=== PATIENT | male | born 1945 | race Caucasian/White ===

== ENCOUNTER 2016-09-27 10:15 | Day surgery (SDC) | payer MEDICARE ==
[2016-09-25 14:48] VITALS: BMI 25.2
[~2016-09-27 10:15] MED LIST: HYDROmorphone 1 MG/ML 1 ML SYRINGE IVP PRN; LACTATED RINGERS 1,000 ML IV SCH; LIDOCAINE 1% 20 ML VIAL (10MG/ML) FOR IV START INTRADERMA PRN; ceFAZolin 2 GM in SODIUM CHLORIDE 0.9% 100 ML IVPB ONE
[2016-09-27 10:45] VITALS: TEMP 97.2
--- NOTE | 2016-09-27 12:05 | P.GSHP ---
History of Present Illness H&P Date: 09/27/16 Chief Complaint: Mesothelioma Patient here today for elective Port-A-Cath placement. The patient has a personal history of mesothelioma. Recently he was found to have poor response to his chronic therapy and the new therapy is requiring central access. He has not had a previous port. Past Medical History Past Medical History: Cancer, Hypertension Additional Past Medical History / Comment(s): Mesothelioma History of Any Multi-Drug Resistant Organisms: None Reported Past Surgical History: Orthopedic Surgery Additional Past Surgical History / Comment(s): RT fractured collar bone PLATE AND SCEWS, lt ankle-surgery required plate and screws; "fluid drained from R lung" Past Anesthesia/Blood Transfusion Reactions: No Reported Reaction Past Psychological History: No Psychological Hx Reported Smoking Status: Former smoker Past Alcohol Use History: Rare Additional Past Alcohol Use History / Comment(s): smoked for 22 years 1/2 pkg a day; quit 1979 Past Drug Use History: None Reported - Past Family History Brother(s) Family Medical History: Cancer Additional Family Medical History / Comment(s): "throat cancer" Medications and Allergies Home Medications Medication Instructions Recorded Confirmed Type Lisinopril [Zestril] 10 mg PO QAM 08/17/14 09/27/16 History amLODIPine BESYLATE [Norvasc] 5 mg PO QAM 08/17/14 09/27/16 History Folic Acid 1 mg PO DAILY 09/25/16 09/27/16 History Allergies Allergy/AdvReac Type Severity Reaction Status Date / Time No Known Allergies Allergy Verified 09/25/16 14:37 Surgical - Exam Vital Signs Temp Pulse Resp BP Pulse Ox 97.2 F L 66 16 153/72 97 09/27/16 10:44 09/27/16 10:44 09/27/16 10:44 09/27/16 10:44 09/27/16 10:44 Physical exam: General: Well-developed, well-nourished HEENT: Normocephalic, sclerae nonicteric Abdomen: Nontender, nondistended Extremities: No edema Neuro: Alert and oriented Assessment and Plan (1) Mesothelioma Narrative/Plan: Will proceed with Port-A-Cath placement today. Risks of bleeding, infection, pneumothorax, catheter malfunction, catheter breakage, DVT were discussed. He understands and wishes to proceed. Status: Acute
[2016-09-27] MEDS ORDERED: PROPOFOL 10 MG/ML 20 ML VIAL IV ONE (12:29)
[2016-09-27] MEDS ORDERED: fentaNYL (PF) 50 MCG/ML 2 ML AMP ONE (12:29)
[2016-09-27] MEDS ORDERED: MIDAZOLAM 2 MG/2 ML VIAL ONE (12:29)
[2016-09-27] MEDS ORDERED: KETAMINE 10 MG/ML 20 ML VIAL ONE (12:29)
[2016-09-27] MEDS ORDERED: HEPARIN SODIUM,PORCINE 100 UNIT/ML 5 ML VIAL IV ONE ×2 (12:51)
[2016-09-27] MEDS ORDERED: LIDOCAINE (PF) 10 MG/ML 2 ML VIAL SQ ONE ×2 (12:52)
[2016-09-27] MEDS ORDERED: LACTATED RINGERS 1,000 ML IV ONE (12:55)
[2016-09-27] MEDS ORDERED: HYDROcodone/APAP 5-325MG 1 EACH TAB PO PRN (13:19)
[2016-09-27] MEDS ORDERED: NALOXONE 0.4 MG/ML 1 ML VIAL IV PRN (13:19)
--- NOTE | 2016-09-27 13:21 | P.OP ---
Date of Procedure: 09/27/16 Preoperative Diagnosis: Postoperative Diagnosis: Procedure(s) Performed: PREOPERATIVE DIAGNOSIS: Mesothelioma POSTOPERATIVE DIAGNOSIS: Same PROCEDURE: Port-A-Cath placement SURGEON: Skinny EBL: Minimal ANESTHESIA: Sedation COMPLICATIONS: None OPERATIVE PROCEDURE: Patient was brought and placed on the operative table in the supine position. The patient was sedated per anesthesia that time. The chest and neck were prepped and draped in usual sterile fashion. The ultrasound probe was used to identify the location of the right internal jugular vein. The skin was localized with lidocaine. The Seldinger needle was advanced into the IJ under ultrasound guidance. The wire was advanced through the needle under fluoroscopic guidance into the superior vena cava. A port pocket was created in the right infraclavicular location. The catheter was tunneled from the wire entrance site to the port pocket. The port was then connected to the catheter. The dilator introducer was threaded over the guidewire. The guidewire and dilator were then removed. The catheter was advanced through the introducer and introducer was then removed. The tip was seen to be in the right atrial junction. Port was flushed with both saline and a Hep-Lock solution. There was good flow both in and out of the port. The port was sutured in underlying tissues using 3-0 silk sutures. The subcutaneous tissues were reapproximated using 3-0 Vicryl sutures and the skin at both locations using 4-0 Monocryl sutures. Steri-Strips and sterile dressings then applied. DISPOSITION: Stable to recovery room Implants: Indications for Procedure: Operative Findings: Description of Procedure:
--- NOTE | 2016-09-27 13:22 | FL ---
FLUOROSCOPY 7 seconds of fluoroscopy time were utilized during Port-A-Cath placement. 1 images document the proce dure.
[2016-09-27 13:42] VITALS: RESP 16
--- NOTE | 2016-09-27 13:54 | XR ---
EXAMINATION TYPE: XR chest 1V portable DATE OF EXAM: 09/27/2016 HISTORY: LINE PLACEMENT. REFERENCE: Previous study dated 08/26/2014. FINDINGS: There has been previous internal fixation of the right clavicle. There is a MediPort in place via a right internal jugular approach. Its tip is in the superior vena c michele. There is a loculated pleural effusion on the right. There is some associated airspace disease. The le ft lung is clear. Heart size is upper limits of normal. No postprocedure pneumothorax is seen. IMPRESSION: LOCULATED RIGHT-SIDED PLEURAL EFFUSION WITH ASSOCIATED AIRSPACE DISEASE.
[2016-09-27 14:34] VITALS: BP 153/68; PULSE 81
== END 2016-09-27 14:42 | disposition home or self-care (01) ==
LOC: OR 10:15
PROVIDERS: ATTEND Surgery
DX: C45.9 Mesothelioma, unspecified (principal); I10 Essential (primary) hypertension; Z79.899 Other long term (current) drug therapy; Z87.891 Personal history of nicotine dependence; Z80.8 Family history of malignant neoplasm of other organs or systems
CPT/HCPCS: 36561; 71010; 77001; C1788; J2250; J2001; J1642; J0690; J3010; J2704

== ENCOUNTER → 2016-10-03 | Outpatient (CLI) | payer MEDICARE ==
--- NOTE | 2016-10-03 19:47 | XR ---
EXAMINATION TYPE: XR chest 2V DATE OF EXAM: 10/03/2016 COMPARISON: 09/27/2016 HISTORY: Short of breath TECHNIQUE: Frontal and lateral views of the chest are obtained. FINDINGS: There is blunting of right costophrenic angle. There is slight blunting of left costophren ic angle. There is a plate fixing an old right clavicle fracture. There is right central venous jose luis ter with tip in the superior vena cava. IMPRESSION: There is moderate size right pleural effusion with right lower lobe infiltrate that is u nchanged compared to last exam. No heart failure. There is new small left pleural effusion.
== END | disposition home or self-care (01) ==
LOC: RADXRMAIN 19:17
PROVIDERS: ATTEND Internal Medicine Hematology & Oncology
DX: J90 Pleural effusion, not elsewhere classified (principal); R91.8 Other nonspecific abnormal finding of lung field
CPT/HCPCS: 71020

== ENCOUNTER 2016-10-09 07:54 | Day surgery (SDC) | payer MEDICARE ==
[2016-10-09] MEDS ORDERED: ALPRAZolam 0.25 MG TAB PO STA (08:43)
[2016-10-09 08:50] VITALS: TEMP 98.1
[2016-10-09 08:53] LABS: Mean Platelet Volume 6.6
[2016-10-09 08:58] LABS: INR 1.1 (<1.1); Prothrombin Time 11.4 sec (9.0-12.0)
[2016-10-09 09:43] VITALS: BP 133/66; PULSE 86; RESP 15
--- NOTE | 2016-10-09 10:33 | XR ---
EXAMINATION TYPE: XR chest 1V DATE OF EXAM: 10/09/2016 COMPARISON: Prior chest x-ray 10/03/2016 HISTORY: Status post right-sided thoracentesis TECHNIQUE: Single frontal view of the chest is obtained. FINDINGS: There is some interval improvement in the aeration of the right lung. Interval reduction i n pleural fluid. No evident pneumothorax. No other significant interval change. IMPRESSION: No evident complication status post right thoracentesis.
--- NOTE | 2016-10-09 10:59 | US ---
EXAMINATION TYPE: US thoracentesis DATE OF EXAM: 10/09/2016 COMPARISON: NONE HISTORY: Pleural effusion. FINDINGS: Maximal barrier technique was utilized. The skin overlying a suitable pocket of fluid was localized and the overlying skin prepped and draped. Lidocaine was used for local anesthesia. Ultras ound was used with sterile technique. A 5 Spanish catheter over guide needle was advanced into the pl eural fluid collection using ultrasound guidance and the catheter advanced, needle removed. Approxim ately 0.75liter(s) of serous fluid was removed. Catheter was withdrawn and hemostasis achieved. The re is no immediate complication. The patient discharged in stable condition without complication. IMPRESSION: STATUS POST ULTRASOUND GUIDED THORACENTESIS, POST PROCEDURE CHEST X-RAY PENDING. THIS IL OCEDURE WAS PERFORMED BY THE UNDERSIGNED.
== END 2016-10-09 10:40 | disposition home or self-care (01) ==
LOC: RADPROMAIN 07:54
PROVIDERS: ATTEND Internal Medicine Hematology & Oncology
DX: F91.8 Other conduct disorders (principal); C45.0 Mesothelioma of pleura
CPT/HCPCS: 85049; 85610; 71010; 32555; J1642

== ENCOUNTER → 2016-11-21 | Outpatient (CLI) | payer MEDICARE ==
--- NOTE | 2016-11-21 15:31 | XR ---
EXAMINATION TYPE: XR chest 2V DATE OF EXAM: 11/21/2016 COMPARISON: Prior chest x-ray 10/09/2016 HISTORY: Mesothelioma, C 45.0 TECHNIQUE: Frontal and lateral views of the chest are obtained. FINDINGS: Right-sided Port-A-Cath is present, distal tip overlying superior vena cava. Pleural paren chymal changes are similar to prior exam within the right hemithorax. Interstitium is prominent in th e right hemithorax, right hilum also somewhat prominent as compared to left. No evident pneumothorax. Possible small pleural effusion. Heart size is stable. IMPRESSION: Findings compatible with patient's history of mesothelioma. There is likely associated e ffusion.
== END | disposition home or self-care (01) ==
LOC: RADXRMAIN 13:45
PROVIDERS: ATTEND Internal Medicine Hematology & Oncology
DX: C45.0 Mesothelioma of pleura (principal); C43.9 Malignant melanoma of skin, unspecified; E78.2 Mixed hyperlipidemia; I10 Essential (primary) hypertension
CPT/HCPCS: 71020

== ENCOUNTER → 2016-12-19 | Outpatient (CLI) | payer MEDICARE ==
--- NOTE | 2016-12-19 09:49 | XR ---
EXAMINATION TYPE: XR chest 2V DATE OF EXAM: 12/19/2016 COMPARISON: 11/21/2016 TECHNIQUE: PA and lateral views submitted. HISTORY: Mesothelioma FINDINGS: Bilateral consolidation and pleural effusion greater on the right is stable. Mediport catheter noted. Diffuse osteopenia and arthropathy of the shoulders. Underlying COPD noted. Curvature the spine with hypertrophic changes. Postsurgical change right clavicle. IMPRESSION: 1. Stable bilateral consolidation and pleural effusion greater on the right. Findings compatible with the patient's history of mesothelioma.
== END ==
LOC: RADXRMAIN 09:24
PROVIDERS: ATTEND Internal Medicine Hematology & Oncology
DX: C43.9 Malignant melanoma of skin, unspecified (principal); C45.0 Mesothelioma of pleura; J91.0 Malignant pleural effusion
CPT/HCPCS: 71020

== ENCOUNTER 2016-12-24 08:58 | Inpatient (IN) | payer MEDICARE ==
--- NOTE | 2016-12-24 09:42 | ED ---
General Adult HPI - General Chief complaint: Recheck/Abnormal Lab/Rx Stated complaint: MACHO, VISUAL DISTURBANCE Time Seen by Provider: 12/24/16 09:00 Source: patient, RN notes reviewed Mode of arrival: ambulatory Limitations: no limitations - History of Present Illness Initial comments: This is a 71-year-old male who presents emergency department complaining about 4 week history of difficulty breathing. Patient states the difficulty breathing is gotten progressively worse per patient states he has a past medical history significant for mesothelioma. Patient states though the breathing has gotten more difficult the reason he came in today was because while he was walking into [facility] he became short of breath also started to have a disturbed vision he stated his vision was all broken up but not blurred patient states it lasts about 15 minutes and it went away. Patient denies any sensation of near syncope or syncope. Patient denies any dizziness or lightheadedness. Patient denies any chest pain or palpitations. Patient denies any recent fever chills or cough. Patient denies abdominal pain patient denies nausea vomiting or diarrhea. Patient denies any calf pain however he does mention he has edema in the last week of his legs. - Related Data Home Medications Medication Instructions Recorded Confirmed Lisinopril [Zestril] 10 mg PO QAM 08/17/14 12/24/16 amLODIPine BESYLATE [Norvasc] 5 mg PO QAM 08/17/14 12/24/16 Acetaminophen [Tylenol Extra 1,000 mg PO Q6H PRN 10/09/16 12/24/16 Strength] Omeprazole 20 mg PO DAILY 12/24/16 12/24/16 Allergies Allergy/AdvReac Type Severity Reaction Status Date / Time No Known Allergies Allergy Verified 12/24/16 09:42 Review of Systems ROS Statement: Those systems with pertinent positive or pertinent negative responses have been documented in the HPI. ROS Other: All systems not noted in ROS Statement are negative. Past Medical History Past Medical History: Cancer, Hypertension Additional Past Medical History / Comment(s): Mesothelioma, chemo therapy History of Any Multi-Drug Resistant Organisms: None Reported Past Surgical History: Orthopedic Surgery Additional Past Surgical History / Comment(s): RT fractured collar bone PLATE AND SCEWS, lt ankle-surgery required plate and screws; "fluid drained from R lung", VATS pleural talc right lung, infusaport inserted Past Anesthesia/Blood Transfusion Reactions: No Reported Reaction Past Psychological History: No Psychological Hx Reported Smoking Status: Former smoker Past Alcohol Use History: Rare Past Drug Use History: None Reported - Past Family History Brother(s) Family Medical History: Cancer Additional Family Medical History / Comment(s): "throat cancer" General Exam - General Exam Comments Initial Comments: GENERAL: Patient is well-developed and well-nourished. Patient is nontoxic and well- hydrated and is in mild distress. ENT: Neck is soft and supple. No significant lymphadenopathy is noted. Oropharynx is clear. Moist mucous membranes. Neck has full range of motion without eliciting any pain. EYES: The sclera were anicteric and conjunctiva were pink and moist. Extraocular movements were intact and pupils were equal round and reactive to light. Eyelids were unremarkable. PULMONARY: Patient is crackles right base. CARDIOVASCULAR: There is a regular rate and rhythm without any murmurs gallops or rubs. ABDOMEN: Soft and nontender with normal bowel sounds. No palpable organomegaly was noted. There is no palpable pulsatile mass. SKIN: Skin is clear with no lesions or rashes and otherwise unremarkable. NEUROLOGIC: Patient is alert and oriented x3. Cranial nerves II through XII are grossly intact. Motor and sensory are also intact. Normal speech, volume and content. Symmetrical smile. MUSCULOSKELETAL: Normal extremities with adequate strength and full range of motion. LYMPHATICS: No significant lymphadenopathy is noted PSYCHIATRIC: Normal psychiatric evaluation. Limitations: no limitations Course Vital Signs 12/24/16 12/24/16 12/24/16 09:00 10:45 12:21 Temperature 97.2 F L Pulse Rate 86 93 88 Respiratory 20 18 18 Rate Blood Pressure 160/77 158/73 136/67 O2 Sat by Pulse 92 L 93 L 94 L Oximetry Medical Decision Making - Medical Decision Making EKG shows normal sinus rhythm at 86 bpm IN interval 184 QRS is under 10 Q-T intervals 378 QTC is 452. Patient's EKG shows no ST segment elevation or depression or T wave abnormalities are noted. Chest x-ray shows pleural effusions possible Mass. no significant change from us chest x-ray. CT of the chest shows no Katharina embolism and some progression of the cancer from 2016. CT of the brain shows no acute abnormality. - Lab Data Result diagrams: 12/24/16 09:57 12/24/16 09:57 Lab Results 0912/24/16 12/24/16 Range/Units 09:57 09:57 09:57 WBC 4.6 (3.8-10.6) k/uL RBC 3.78 L (4.30-5.90) m/uL Hgb 10.6 L (13.0-17.5) gm/dL Hct 30.8 L (39.0-53.0) % MCV 81.5 (80.0-100.0) fL MCH 28.1 (25.0-35.0) pg MCHC 34.5 (31.0-37.0) g/dL RDW 17.2 H (11.5-15.5) % Plt Count 358 (150-450) k/uL Neutrophils % (Manual) 73 % Lymphocytes % (Manual) 11 % Monocytes % (Manual) 15 % Eosinophils % (Manual) 1 % Neutrophils # (Manual) 3.36 (1.3-7.7) k/uL Lymphocytes # (Manual) 0.51 L (1.0-4.8) k/uL Monocytes # (Manual) 0.69 (0-1.0) k/uL Eosinophils # (Manual) 0.05 (0-0.7) k/uL Nucleated RBCs 0 (0-0) /100 WBC Polychromasia Present Hypochromasia Slight Poikilocytosis Slight Anisocytosis Slight PT (9.0-12.0) sec INR (<1.2) APTT (22.0-30.0) sec D-Dimer (<0.60) mg/L FEU Sodium 135 L (137-145) mmol/L Potassium 3.9 (3.5-5.1) mmol/L Chloride 102 (98-107) mmol/L Carbon Dioxide 23 (22-30) mmol/L Anion Gap 10 mmol/L BUN 15 (9-20) mg/dL Creatinine 0.77 (0.66-1.25) mg/dL Est GFR (MDRD) Af Amer >60 (>60 ml/min/1.73 sqM) Est GFR (MDRD) Non-Af >60 (>60 ml/min/1.73 sqM) Glucose 96 (74-99) mg/dL Calcium 9.0 (8.4-10.2) mg/dL Magnesium 1.7 (1.6-2.3) mg/dL Total Bilirubin 0.3 (0.2-1.3) mg/dL AST 31 (17-59) U/L ALT 32 (21-72) U/L Alkaline Phosphatase 85 (38-126) U/L Total Creatine Kinase 104 (55-170) U/L CK-MB (CK-2) 2.5 H* (0.0-2.4) ng/mL CK-MB (CK-2) Rel Index 2.4 Troponin I <0.012 (0.000-0.034) ng/mL NT-Pro-B Natriuret Pep pg/mL Total Protein 6.7 (6.3-8.2) g/dL Albumin 3.1 L (3.5-5.0) g/dL 12/24/16 12/24/16 Range/Units 09:57 09:57 WBC (3.8-10.6) k/uL RBC (4.30-5.90) m/uL Hgb (13.0-17.5) gm/dL Hct (39.0-53.0) % MCV (80.0-100.0) fL MCH (25.0-35.0) pg MCHC (31.0-37.0) g/dL RDW (11.5-15.5) % Plt Count (150-450) k/uL Neutrophils % (Manual) % Lymphocytes % (Manual) % Monocytes % (Manual) % Eosinophils % (Manual) % Neutrophils # (Manual) (1.3-7.7) k/uL Lymphocytes # (Manual) (1.0-4.8) k/uL Monocytes # (Manual) (0-1.0) k/uL Eosinophils # (Manual) (0-0.7) k/uL Nucleated RBCs (0-0) /100 WBC Polychromasia Hypochromasia Poikilocytosis Anisocytosis PT 10.5 (9.0-12.0) sec INR 1.0 (<1.2) APTT 25.0 (22.0-30.0) sec D-Dimer 3.84 H (<0.60) mg/L FEU Sodium (137-145) mmol/L Potassium (3.5-5.1) mmol/L Chloride (98-107) mmol/L Carbon Dioxide (22-30) mmol/L Anion Gap mmol/L BUN (9-20) mg/dL Creatinine (0.66-1.25) mg/dL Est GFR (MDRD) Af Amer (>60 ml/min/1.73 sqM) Est GFR (MDRD) Non-Af (>60 ml/min/1.73 sqM) Glucose (74-99) mg/dL Calcium (8.4-10.2) mg/dL Magnesium (1.6-2.3) mg/dL Total Bilirubin (0.2-1.3) mg/dL AST (17-59) U/L ALT (21-72) U/L Alkaline Phosphatase (38-126) U/L Total Creatine Kinase (55-170) U/L CK-MB (CK-2) (0.0-2.4) ng/mL CK-MB (CK-2) Rel Index Troponin I (0.000-0.034) ng/mL NT-Pro-B Natriuret Pep 120 pg/mL Total Protein (6.3-8.2) g/dL Albumin (3.5-5.0) g/dL Disposition Clinical Impression: Visual disturbance, Dyspnea, History of malignant mesothelioma Disposition: ADMITTED IP TO THIS HOSP Referrals: Theron Zaragoza MD [Primary Care Provider] - 1-2 days Time of Disposition: 12:34
--- NOTE | 2016-12-24 10:13 | CT ---
EXAMINATION TYPE: CT brain wo con DATE OF EXAM: 12/24/2016 HISTORY: Blurred vision CT DLP: 1036 mGycm. Automated Exposure Control for Dose Reduction was Utilized. TECHNIQUE: CT scan of the head is performed without contrast. COMPARISON: None. FINDINGS: There is no acute intracranial hemorrhage or midline shift identified. There is diffuse v entricular and sulcal prominence consistent with diffuse age-related cerebral atrophy. Monge-white mat ter differentiation is fairly well-maintained. Left lens is not well-visualized, could reflect underl amanda cataract. Visualized paranasal sinuses are clear. IMPRESSION: No acute intracranial hemorrhage or midline shift. There is mild diffuse age-related ce rebral atrophy noted.
[2016-12-24 10:33] LABS: Anisocytosis Slight; Aty Lym Flag Slight; CH 26.6; CHCM 32.7; HCT 30.8 % (39.0-53.0); HDW 3.56; HGB 10.6 gm/dL (13.0-17.5); Hypochromasia Slight; MCH 28.1 pg (25.0-35.0); MCHC 34.5 g/dL (31.0-37.0); MCV 81.5 fL (80.0-100.0); Poikilocytosis Slight; RBC 3.78 m/uL (4.30-5.90); RDW 17.2 % (11.5-15.5); WBC 4.6 k/uL (3.8-10.6); WBC (Perox) 4.21
[2016-12-24 10:36] LABS: Creatine Kinase 104 U/L (55-170)
[2016-12-24 10:37] LABS: ALT 32 U/L (21-72); AST 31 U/L (17-59); Alkaline Phosphatase 85 U/L (38-126); Anion Gap 10 mmol/L; Blood Urea Nitrogen 15 mg/dL (9-20); Carbon Dioxide 23 mmol/L (22-30); Chloride 102 mmol/L (98-107); Glucose 96 mg/dL (74-99); Magnesium 1.7 mg/dL (1.6-2.3); Non-African American GFR(MDRD) >60 (>60 ml/min/1.73 sqM); Potassium 3.9 mmol/L (3.5-5.1); Sodium 135 mmol/L (137-145); Total Bilirubin 0.3 mg/dL (0.2-1.3); Total Protein 6.7 g/dL (6.3-8.2)
[2016-12-24 10:45] LABS: Prothrombin Time 10.5 sec (9.0-12.0)
[2016-12-24 10:49] LABS: Troponin I <0.012 ng/mL (0.000-0.034)
[2016-12-24 11:00] LABS: Add Differential Manual Differential; Creatine Kinase MB 2.5 ng/mL (0.0-2.4)
[2016-12-24 11:02] LABS: Nucleated Red Blood Cells 0 /100 WBC (0-0); Polychromasia Present; Total Cells Counted 100
--- NOTE | 2016-12-24 11:09 | XR ---
EXAMINATION TYPE: XR chest 2V DATE OF EXAM: 12/24/2016 COMPARISON: Chest x-ray December 19, 2016 and older studies. HISTORY: Difficulty breathing. TECHNIQUE: Frontal and lateral views of the chest are obtained. FINDINGS: There is fusion plate or healed fracture right clavicle redemonstrated. There is stable ri ght internal jugular Mediport catheter. Cardiac silhouette size is stable and within normal limits wi th atherosclerotic thoracic aorta. There is chronic emphysematous change with small left and moderate size right pleural effusion with diffuse right mid and bilateral lower lung opacities redemonstrated . No sizable pneumothorax is evident bilaterally. IMPRESSION: Chronic emphysematous change with small left and moderate size right pleural effusion wi th bilateral lower and right midlung infiltrate and/or atelectasis all redemonstrated. Underlying rig ht midlung mass or neoplasm is not excluded. No significant change from most recent chest x-ray.
[2016-12-24] MEDS ORDERED: RX INFO: IV CONTRAST WAS GIVEN 1 EACH MISC MISCELLANE PRN ×2 (11:26→16:28)
--- NOTE | 2016-12-24 12:14 | CT ---
CT CHEST FOR PULMONARY EMBOLISM. EXAMINATION TYPE: CT chest angio for PE DATE OF EXAM: 12/24/2016 INDICATION: MACHO, elevated d dimer, history of mesothelioma CT DLP: 243.8 mGycm, Automated exposure control for dose reduction was used. CONTRAST: Patient injected with 100 mL of Omnipaque 350. COMPARISON: Most recent at this site is 12/02/2015 TECHNIQUE: CT of the chest is performed on a spiral scan at 2 mm thick sections. Study is performed with intravenous contrast timed for evaluation for pulmonary embolism. This will limit additional po rtions of the evaluation. 3-D MIP images reconstructed by the technologist are reviewed on the compu ter in the coronal and sagittal planes. FINDINGS: No persistent filling defects are evident to suggest an acute pulmonary embolism. Pericardial effusion is present. Masslike area may be in the subcarinal region. There is narrowing of the bilateral main bronchi. Trachea is somewhat posterior compressed. Enlarged mediastinal lymph nod es are present. Largest appears to be in the pretracheal space measuring approximately 2.6 cm. Superi or mediastinal lymph nodes are present. The ascending aorta diameter at the level of the main pulmonary artery is 3.1 cm. The main pulmonary artery diameter at the bifurcation is 2.9 cm. There is consolidation in the posterior right midlung extending into right lower lobe. Correlate for pneumonia. Loculated right pleural effusion is present. Moderate left pleural effusion is present. Limited CT section through the upper abdomen are unremarkable. IMPRESSIONS: 1. No acute pulmonary embolism. 2. Consolidation posterior right lung. Correlate for pneumonia. Underlying mass should be considered. 3. Right and left pleural effusions. 4. Marked enlarged adenopathy. Some compression of the bilateral main bronchi and distal trachea may be present. 5. Findings have developed in the patient's mesothelioma from the comparison of 2015.
[2016-12-24] MEDS ORDERED: SODIUM CHLORIDE 0.9% 1,000 ML IV ONE (12:34)
[2016-12-24 14:14] VITALS: BMI 24.0
--- NOTE | 2016-12-24 16:40 | P.HPIM ---
History of Present Illness H&P Date: 12/24/16 Chief Complaint: Short of breath History of present complaint: This is a very pleasant 71-year-old patient Dr. Theron Zaragoza. Also follows the Dr. Aguilar from oncology. Patient has a diagnosis of mesothelioma. Diagnosed to have years ago. Recent treatment was not been doing good hence he is due to go down to [facility]'s 11th of this month. Patient's appetite is gone down. Has been gradually losing weight. The patient presently more shortness of breath and slight cough no sputum no fever. Patient went to [facility] and suddenly his big vision became. As if the whole feeling was broken up and looking through her tube.. PE was ruled out in the ER and patient was admitted. Patient noticed some slight swelling of the ankle. GEN.: Tired, weight loss EYES: Vision as above] HEENT: None NECK: None RESPIRATORY: As above CARDIOVASCULAR: None GASTROINTESTINAL: None GENITOURINARY: None MUSCULOSKELETAL: None LYMPHATICS: None HEMATOLOGICAL: None PSYCHIATRY: None NEUROLOGICAL: None Past medical history: Hypertension, mesothelioma, Past surgical history: Orthopedic surgery right fractured collarbone. Plate and screws, fluid drained from the right lung, VATS pleural fluid tap right lung Social history: Smoke a half pack a day 22 years, stopped in 1979. Lives with his . Family history: Throat cancer Home medications: Reviewed in the electronic records ALLERGIES: None VITAL SIGNS: 97.2, 90, 18, 140/70, 92% 2 L GENERAL: Average built, sitting up, tired appearing. EYES: Pupils equal. Conjunctiva normal. HEENT: External appearance of nose and ears normal, oral cavity grossly normal. NECK: JVD possibly raised; masses not palpable. HEART: First and second heart sounds are normal; some ankle edema. LUNGS: Respiratory rate increased, decreased breath sounds with slight basal crackles. ABDOMEN: Soft, nontender, liver spleen not palpable, no masses palpable. LYMPHATICS: No lymph nodes palpable in the axilla and neck. PSYCH: Alert and oriented x3; mood and affect graciela, anxious appearingl. NEUROLOGICAL: Cranial nerves grossly intact; no facial asymmetry, power and sensation grossly intact. Investigations: White count 4.6, myoglobin 10.6, potassium 3.9, BUN/creatinine normal, proBNP 120, troponin less than 0.012 Chest CTA shows negative for PE checks x-ray shows infiltrate on the right side Assessment: Possible right basilar pneumonia suspected gram-negative orgasms Mesothelioma treated with chemotherapy as now 6 not be responding Essential hypertension Abnormal tunnellike abnormal broken vision Plan: *The patient IV Zosyn. We'll get a pulmonary and oncology opinion. We will do a computed tomography scan of the brain with contrast to rule out any metastatic disease. Also start the patient bronchodilators given history of smoking given discussed with the patient. At await input from my colleagues Past Medical History Past Medical History: Cancer, Hypertension Additional Past Medical History / Comment(s): Mesothelioma, chemo therapy, last chemo 4 weeks ago History of Any Multi-Drug Resistant Organisms: None Reported Past Surgical History: Orthopedic Surgery Additional Past Surgical History / Comment(s): RT fractured collar bone PLATE AND SCEWS, lt ankle-surgery required plate and screws; "fluid drained from R lung", VATS pleural talc right lung, right infusaport inserted Past Anesthesia/Blood Transfusion Reactions: No Reported Reaction Past Psychological History: No Psychological Hx Reported Smoking Status: Former smoker Past Alcohol Use History: Rare Additional Past Alcohol Use History / Comment(s): smoked for 22 years 1/2 pkg a day; quit 1979 Past Drug Use History: None Reported - Past Family History Brother(s) Family Medical History: Cancer Additional Family Medical History / Comment(s): "throat cancer" Medications and Allergies Home Medications Medication Instructions Recorded Confirmed Type Lisinopril [Zestril] 10 mg PO QAM 08/17/14 12/24/16 History amLODIPine BESYLATE [Norvasc] 5 mg PO QAM 08/17/14 12/24/16 History Acetaminophen [Tylenol Extra 1,000 mg PO Q6H PRN 10/09/16 12/24/16 History Strength] Omeprazole 20 mg PO DAILY 12/24/16 12/24/16 History Allergies Allergy/AdvReac Type Severity Reaction Status Date / Time No Known Allergies Allergy Verified 12/24/16 09:42 Results CBC & Chem 7: 12/24/16 09:57 12/24/16 09:57
--- NOTE | 2016-12-24 17:44 | P.CNPUL ---
History of Present Illness Consult date: 12/24/16 Reason for consult: dyspnea History of present illness: A 71-year-old male patient, a primary care of Dr. Theron Zaragoza was also has Dr. Goss as his director fraud and Dr. Aguilar for oncology. The patient has a diagnosis of mesothelioma at was established approximately 2-1/2 years back. Diagnosis established by a video-assisted thoracoscopic lung biopsy. Since then the patient has been on systemic chemotherapy. The patient was placed on Alimta on 2 separate occasions. He was found to have evidence of disease progression and following that he was switched to cisplatin which has been his latest systemic chemotherapy. The patient's condition has been gradually getting worse. His appetite has been down. His been losing weight. He has developed a painful bulge over the right lateral chest area. He also noted progressive worsening shortness of breath and for that reason he presented to the hospital. Minimal cough.No sputum production. No hemoptysis. No fever or chills. No previous history of DVT or pulmonary embolism. For this reason the patient presented to the hospital and a CT angios the chest was done that showed no evidence of any pulmonary embolism. The findings were very suspicious for disease progression and the patient had progressive worsening of the pleural mesothelioma in addition to development of an enlarged mediastinal lymphadenopathy causing mass effect on the distal trachea and the bilateral mainstem bronchi. There was also area of consolidation in the posterior right midlung and the right lower lobe and a small right-sided loculated pleural effusion. I think this is very much consistent with disease progression. Underlying pneumonia or a superimposed pneumonia is doubtful that he cannot be completely excluded. Note that the patient underwent a recent large volume thoracentesis from the right lung with a total of 750 mL of pleural fluid is aspirated from the right lung on the the care of interventional radiology.No leg swelling. No history of any DVT or pulmonary embolism. No change in mental status. CAT scan of the brain is also negative. Hemoglobin is at 10. Review of Systems Constitutional: Reports fatigue, Reports weakness, Reports weight loss Eyes: denies blurred vision, denies bulging eye, denies decreased vision Ears: deny: decreased hearing, ear discharge, earache Ears, nose, mouth and throat: Denies headache, Denies sore throat Cardiovascular: Reports decreased exercise tolerance, Reports dyspnea on exertion, Reports shortness of breath Respiratory: Reports dyspnea Musculoskeletal: Denies myalgias Musculoskeletal: absent: ankle pain, ankle stiffness, ankle swelling Integumentary: Denies pruritus, Denies rash Neurological: Denies numbness, Denies weakness Psychiatric: Denies anxiety, Denies depression Endocrine: Denies fatigue, Denies weight change Past Medical History Past Medical History: Cancer, Hypertension Additional Past Medical History / Comment(s): Mesothelioma, chemo therapy, last chemo 4 weeks ago History of Any Multi-Drug Resistant Organisms: None Reported Past Surgical History: Orthopedic Surgery Additional Past Surgical History / Comment(s): RT fractured collar bone PLATE AND SCEWS, lt ankle-surgery required plate and screws; thoracentesis of the right lung", VATS pleural talc right lung, right infusaport inserted Past Anesthesia/Blood Transfusion Reactions: No Reported Reaction Past Psychological History: No Psychological Hx Reported Smoking Status: Former smoker Past Alcohol Use History: Rare Additional Past Alcohol Use History / Comment(s): smoked for 22 years 1/2 pkg a day; quit 1979 Past Drug Use History: None Reported - Past Family History Brother(s) Family Medical History: Cancer Additional Family Medical History / Comment(s): "throat cancer" Medications and Allergies Home Medications Medication Instructions Recorded Confirmed Type Lisinopril [Zestril] 10 mg PO QAM 08/17/14 12/24/16 History amLODIPine BESYLATE [Norvasc] 5 mg PO QAM 08/17/14 12/24/16 History Acetaminophen [Tylenol Extra 1,000 mg PO Q6H PRN 10/09/16 12/24/16 History Strength] Omeprazole 20 mg PO DAILY 12/24/16 12/24/16 History Allergies Allergy/AdvReac Type Severity Reaction Status Date / Time No Known Allergies Allergy Verified 12/24/16 09:42 Physical Exam Vitals: Vital Signs Temp Pulse Resp BP Pulse Ox 12/24/16 13:46 97.2 F L 90 18 144/70 92 L 12/24/16 13:25 90 18 144/70 92 L 12/24/16 12:21 88 18 136/67 94 L 12/24/16 10:45 93 18 158/73 93 L 12/24/16 09:00 97.2 F L 86 20 160/77 92 L Intake and Output 12/24/16 12/24/16 12/24/16 06:59 14:59 22:59 Other: Weight 63.503 kg Patient Weight 12/25/16 06:59 Weight 63.503 kg The patient appeared well nourished and normally developed. Vital signs as documented. Head exam is unremarkable. No scleral icterus or corneal arcus noted. Neck is without jugular venous distension, thyromegaly, or carotid bruits. Carotid upstrokes are brisk bilaterally. Lungs are showing diminished breath on the lung bases bilaterally right more than left lung with some coarse crackles along the right lateral chest wall and right lower lobe. The chest along the right is swollen and there is asymmetric bulge along the rib cage and there is also tender to touch. No cellulitis.. Cardiac exam reveals the PMI to be normally sized and situated. Rhythm is regular. First and second heart sounds normal. No murmurs, rubs or gallops. Abdominal exam reveals normal bowel sounds, no masses, no organomegaly and no aortic enlargement. Extremities are nonedematous and both femoral and pedal pulses are normal. Results - Laboratory Findings CBC and BMP: 12/24/16 09:57 12/24/16 09:57 PT/INR, D-dimer PT 10.5 sec (9.0-12.0) 12/24/16 09:57 INR 1.0 (<1.2) 12/24/16 09:57 D-Dimer 3.84 mg/L FEU (<0.60) H 12/24/16 09:57 Abnormal lab findings: Abnormal Labs 12/24/16 12/24/16 12/24/16 09:57 09:57 09:57 RBC 3.78 L Hgb 10.6 L Hct 30.8 L RDW 17.2 H Lymphocytes # (Manual) 0.51 L D-Dimer Sodium 135 L CK-MB (CK-2) 2.5 H* Albumin 3.1 L 12/24/16 09:57 RBC Hgb Hct RDW Lymphocytes # (Manual) D-Dimer 3.84 H Sodium CK-MB (CK-2) Albumin - Diagnostic Findings CT scan - chest: image reviewed Assessment and Plan Plan: Assessment 1 malignant mesothelioma with obvious signs of disease progression based on the most recent CAT scan of the chest that was done during the current admission. I compared the current CAT scan with a previous CAT scan of the chest that was done in November 2015 and there is significant disease progression with development of bulky mediastinal lymphadenopathy causing significant mass effect on the distal trachea and bilateral mainstem bronchi. There is also extensive consolidation of the right lung and the right middle lobe and there is also development of a loculated right-sided pleural effusion and small to moderate-sized left-sided pleural effusion. 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 3 small to moderate-sized left-sided pleural effusion 4 shortness of breath secondary to above 5 anemia 6 hypertension Plan I discussed the findings with the patient. Unfortunately, there is obvious signs of disease progression and I'll leave it up to oncology to consider alternative treatment or any other experimental treatment for treatment of malignant mesothelioma. Meanwhile, I may offer this patient a IR guided thoracentesis if he is willing. I think the benefit of the draining the located right-sided pleural effusion is marginal. The patient has already undergone a chemical talk pleurodesis on the right side. Draining the left side will be up also no benefit knowing that the amount of fluid is small. Doubt pneumonia, however, it's worthwhile to put this patient empiric antibiotics and patient is currently on IV Zosyn. No indication for pulmonary embolism. Put the patient on Lovenox for DVT prophylaxis. Prognosis poor. The patient will likely get worse and going to respiratory failure should there be further mass effect on his trachea and bilateral mainstem bronchi from the mediastinal mass.
[2016-12-24] MEDS: PIPERACILLIN-TAZOBACTAM 3.375 GM in DEXTROSE/WATER 1 50ML.BAG IVPB SCH (17:53)
[2016-12-24] MEDS: ENOXAPARIN 40 MG/0.4 ML SYRINGE SQ SCH (17:54)
[2016-12-25] MEDS: PIPERACILLIN-TAZOBACTAM 3.375 GM in DEXTROSE/WATER 1 50ML.BAG IVPB SCH ×4 (00:10→23:52)
[2016-12-25 07:30] LABS: Anion Gap 8 mmol/L; Blood Urea Nitrogen 14 mg/dL (9-20); Calcium 9.1 mg/dL (8.4-10.2); Carbon Dioxide 29 mmol/L (22-30); Chloride 100 mmol/L (98-107); Glucose 98 mg/dL (74-99); Non-African American GFR(MDRD) >60 (>60 ml/min/1.73 sqM); Sodium 137 mmol/L (137-145)
[2016-12-25 07:43] LABS: Anisocytosis Slight; CH 26.4; CHCM 31.3; HCT 34.3 % (39.0-53.0); HDW 3.39; HGB 10.9 gm/dL (13.0-17.5); Hypochromasia Moderate; MCH 26.9 pg (25.0-35.0); MCHC 31.8 g/dL (31.0-37.0); MCV 84.7 fL (80.0-100.0); Mean Platelet Volume 6.5; RBC 4.05 m/uL (4.30-5.90); RDW 17.1 % (11.5-15.5); WBC 5.5 k/uL (3.8-10.6); WBC (Perox) 5.33
[2016-12-25 08:04] LABS: Add Differential Manual Differential
[2016-12-25 08:05] LABS: Nucleated Red Blood Cells 0 /100 WBC (0-0); Polychromasia Present; Total Cells Counted 100
[2016-12-25] MEDS: ENOXAPARIN 40 MG/0.4 ML SYRINGE SQ SCH (09:06)
--- NOTE | 2016-12-25 09:34 | P.CRDCN ---
History of Present Illness Consult date: 12/25/16 Reason for Consult (text): shortness of breath Chief complaint: shortness of breath History of present illness: This is a pleasant 71-year-old gentleman who follows with Dr. Conrad in the office. Has a history of malignant mesothelioma and hypertension. Presented to the hospital with complaints of progressively worsening shortness of breath over the last 3 weeks and an episode of visual disturbance while climbing stairs into [employer] yesterday. He was significantly short of breath at the time and said that his vision was distorted. He had been undergoing chemotherapy which was stopped approximately 3 weeks ago due to lack of response. Patient is being scheduled to see an oncologist and a right for possible enrollment in the clinical trial. On admission, chest x-ray was relatively stable compared to previous. D-dimer was elevated and a CTA of the chest was performed that was negative for PE. CTA didn't show right and left pleural effusions, markedly enlarged adenopathy with possible compression of bilateral main bronchi and distal trachea. Unenhanced CT of the brain was negative. Troponin was negative 1 and BNP was 120. Patient does have some edema to his lower extremities that has been developing over the last few weeks. He denies complaints of dizziness, lightheadedness, palpitations or chest discomfort. Past Medical History Past Medical History: Cancer, Hypertension Additional Past Medical History / Comment(s): Mesothelioma, chemo therapy, last chemo 4 weeks ago History of Any Multi-Drug Resistant Organisms: None Reported Past Surgical History: Orthopedic Surgery Additional Past Surgical History / Comment(s): RT fractured collar bone PLATE AND SCEWS, lt ankle-surgery required plate and screws; thoracentesis of the right lung", VATS pleural talc right lung, right infusaport inserted Past Anesthesia/Blood Transfusion Reactions: No Reported Reaction Past Psychological History: No Psychological Hx Reported Smoking Status: Former smoker Past Alcohol Use History: Rare Additional Past Alcohol Use History / Comment(s): smoked for 22 years 1/2 pkg a day; quit 1979 Past Drug Use History: None Reported - Past Family History Brother(s) Family Medical History: Cancer Additional Family Medical History / Comment(s): "throat cancer" Medications and Allergies Home Medications Medication Instructions Recorded Confirmed Type Lisinopril [Zestril] 10 mg PO QAM 08/17/14 12/24/16 History amLODIPine BESYLATE [Norvasc] 5 mg PO QAM 08/17/14 12/24/16 History Acetaminophen [Tylenol Extra 1,000 mg PO Q6H PRN 10/09/16 12/24/16 History Strength] Omeprazole 20 mg PO DAILY 12/24/16 12/24/16 History Allergies Allergy/AdvReac Type Severity Reaction Status Date / Time No Known Allergies Allergy Verified 12/24/16 09:42 Physical Exam Vitals: Vital Signs Temp Pulse Pulse Resp BP BP Pulse Ox 12/25/16 07:00 97.6 F 86 16 145/74 92 L 12/24/16 23:00 98.0 F 92 16 158/78 91 L 12/24/16 13:46 97.2 F L 90 18 144/70 92 L 12/24/16 13:25 90 18 144/70 92 L 12/24/16 12:21 88 18 136/67 94 L 12/24/16 10:45 93 18 158/73 93 L Intake and Output 12/24/16 12/25/16 12/25/16 22:59 06:59 14:59 Intake Total 590 750 Balance 590 750 Intake: Intake, IV Titration 550 Amount Piperacillin-Tazobactam 3 50 .375 gm In Dextrose/Water 1 50ml.bag @ 12.5 mls/hr IVPB Q8HR [facility] Rx#: [id number] Sodium Chloride 0.9% 1, 500 000 ml @ 75 mls/hr IV . [id number] ONE Rx#:[id number] Oral 590 200 Other: Voiding Method Toilet # Voids 2 2 PHYSICAL EXAMINATION: HEENT: Head is atraumatic, normocephalic. Pupils equal, round. Neck is supple. There is no elevated jugular venous pressure. HEART EXAMINATION: Heart sounds regular, S1 and S2 normal. No murmur or gallop heard. CHEST EXAMINATION: Lungs reveal diminished air entry with expiratory wheezing throughout with faint crackles bilateral bases. No chest wall tenderness is noted on palpation or with deep breathing. ABDOMEN: Soft, nontender. Bowel sounds are heard. No organomegaly noted. EXTREMITIES: 2+ peripheral pulses with evidence of 2+ peripheral edema and no calf tenderness noted. NEUROLOGIC patient is awake, alert and oriented x3. . Results 12/25/16 06:37 12/25/16 06:37 Cardiac Enzymes 12/24/16 12/24/16 Range/Units 09:57 09:57 AST 31 (17-59) U/L CK-MB (CK-2) 2.5 H* (0.0-2.4) ng/mL Troponin I <0.012 (0.000-0.034) ng/mL Coagulation 12/24/16 Range/Units 09:57 PT 10.5 (9.0-12.0) sec APTT 25.0 (22.0-30.0) sec CBC 12/24/16 12/25/16 Range/Units 09:57 06:37 WBC 4.6 5.5 (3.8-10.6) k/uL RBC 3.78 L 4.05 L (4.30-5.90) m/uL Hgb 10.6 L 10.9 L (13.0-17.5) gm/dL Hct 30.8 L 34.3 L (39.0-53.0) % Plt Count 358 406 (150-450) k/uL Comprehensive Metabolic Panel 12/24/16 12/25/16 Range/Units 09:57 06:37 Sodium 135 L 137 (137-145) mmol/L Potassium 3.9 4.0 (3.5-5.1) mmol/L Chloride 102 100 (98-107) mmol/L Carbon Dioxide 23 29 (22-30) mmol/L BUN 15 14 (9-20) mg/dL Creatinine 0.77 0.90 (0.66-1.25) mg/dL Glucose 96 98 (74-99) mg/dL Calcium 9.0 9.1 (8.4-10.2) mg/dL AST 31 (17-59) U/L ALT 32 (21-72) U/L Alkaline Phosphatase 85 (38-126) U/L Total Protein 6.7 (6.3-8.2) g/dL Albumin 3.1 L (3.5-5.0) g/dL Current Medications Generic Name Dose Route Start Last Admin Trade Name Freq PRN Reason Stop Dose Admin Enoxaparin Sodium 40 mg 12/24/16 16:30 12/25/16 09:06 Lovenox SQ 40 mg DAILY [facility] Administration Piperacillin/Tazobactam/ 50 mls @ 12.5 mls/hr 12/24/16 16:30 12/25/16 09:05 Dextrose 3.375 gm/ IV Solution IVPB 12.5 mls/hr Q8HR [facility] Administration Miscellaneous Information 1 each 12/24/16 11:26 Rx Info: Iv Contrast Was Given MISCELLANE 12/26/16 11:27 DAILY PRN Per Protocol Miscellaneous Information 1 each 12/24/16 16:28 Rx Info: Iv Contrast Was Given MISCELLANE 12/26/16 16:29 DAILY PRN Per Protocol Intake and Output 12/24/16 12/25/16 12/25/16 22:59 06:59 14:59 Intake Total 590 750 Balance 590 750 Intake: Intake, IV Titration 550 Amount Piperacillin-Tazobactam 3 50 .375 gm In Dextrose/Water 1 50ml.bag @ 12.5 mls/hr IVPB Q8HR [facility] Rx#: [id number] Sodium Chloride 0.9% 1, 500 000 ml @ 75 mls/hr IV . [id number] ONE Rx#:[id number] Oral 590 200 Other: Voiding Method Toilet # Voids 2 2 12/25/16 06:37 12/25/16 06:37 EKG Interpretations (text) Normal sinus rhythm Assessment and Plan Plan: Assessment and plan #1 malignant mesothelioma with disease progression despite chemotherapy, awaiting evaluation scheduled for early this month for possible clinical trial enrollment in [place]. #2 bilateral pleural effusions right greater than left #3 shortness of breath secondary to progression of mesothelioma and bilateral pleural effusions #4 anemia #5 hypertension #6 lower extremity edema From cardiology's perspective, we will await 2-D echo to be done. Resume patient's lisinopril, hold Norvasc for now. Further recommendations depending on findings of echocardiogram. SMALL EQUIPMENT OPERATOR note has been reviewed, I agree with a documented findings and plan of care. Patient was seen and examined.
[2016-12-25] MEDS: LISINOPRIL 10 MG TAB PO SCH (10:30)
--- NOTE | 2016-12-25 12:45 | CT ---
EXAMINATION TYPE: CT brain w con DATE OF EXAM: 12/25/2016 COMPARISON: CT brain from yesterday HISTORY: kaleidoscopic vision, hx of mesothelioma, rule out metastatic disease. CT DLP: 1012.7 mGycm Automated exposure control for dose reduction was used. CONTRAST: CT scan of the head is performed with IV Contrast, patient injected with 100 mL of Omnipaque 300. FINDINGS: There is no abnormal enhancing mass or midline shift identified. The ventricles and sulci are within normal limits in size for patient's age. Left lens is not well-visualized similar to prior. Visualiz ed paranasal sinuses are clear. IMPRESSION: No suspicious enhancing intraparenchymal mass is noted..
[2016-12-25] MEDS ORDERED: TEMAZEPAM 15 MG CAP PO PRN (13:01)
--- NOTE | 2016-12-25 14:46 | P.PN ---
Subjective A 71-year-old male patient, a primary care of Dr. Theron Zaragoza was also has Dr. Goss as his telephone advice nurse and Dr. Aguilar for oncology. The patient has a diagnosis of mesothelioma at was established approximately 2-1/2 years back. Diagnosis established by a video-assisted thoracoscopic lung biopsy. Since then the patient has been on systemic chemotherapy. The patient was placed on Alimta on 2 separate occasions. He was found to have evidence of disease progression and following that he was switched to cisplatin which has been his latest systemic chemotherapy. The patient's condition has been gradually getting worse. His appetite has been down. His been losing weight. He has developed a painful bulge over the right lateral chest area. He also noted progressive worsening shortness of breath and for that reason he presented to the hospital. Minimal cough.No sputum production. No hemoptysis. No fever or chills. No previous history of DVT or pulmonary embolism. For this reason the patient presented to the hospital and a CT angios the chest was done that showed no evidence of any pulmonary embolism. The findings were very suspicious for disease progression and the patient had progressive worsening of the pleural mesothelioma in addition to development of an enlarged mediastinal lymphadenopathy causing mass effect on the distal trachea and the bilateral mainstem bronchi. There was also area of consolidation in the posterior right midlung and the right lower lobe and a small right-sided loculated pleural effusion. I think this is very much consistent with disease progression. Underlying pneumonia or a superimposed pneumonia is doubtful that he cannot be completely excluded. Note that the patient underwent a recent large volume thoracentesis from the right lung with a total of 750 mL of pleural fluid is aspirated from the right lung on the the care of interventional radiology.No leg swelling. No history of any DVT or pulmonary embolism. No change in mental status. CAT scan of the brain is also negative. Hemoglobin is at 10. On 12/25/2016 I'm seeing this patient in follow-up. His condition essentially unchanged. He is quite stable. Still short of breath with limited amount of activity. Discussed the case with Dr. Banegas. The patient is considering experimental treatment for his mesothelioma. We should be able to give this patient some minimal relief by draining the right-sided pleural effusion. For that reason a consultation will be placed for interventional radiology. Objective - Vital Signs Vital signs: Vital Signs Temp 97.6 F 12/25/16 07:00 Pulse 86 09/04/17 07:00 Resp 16 12/25/16 07:00 BP 145/74 12/25/16 07:00 Pulse Ox 92 L 12/25/16 07:00 Intake & Output 12/24/16 12/25/16 12/25/16 18:59 06:59 18:59 Intake Total 1340 Balance 1340 Weight 63.503 kg Intake: Intake, IV Titration 550 Amount Piperacillin-Tazobactam 3 50 .375 gm In Dextrose/Water 1 50ml.bag @ 12.5 mls/hr IVPB Q8HR [facility] Rx#: [id number] Sodium Chloride 0.9% 1, 500 000 ml @ 75 mls/hr IV . [id number] [facility] Rx#:[id number] Oral 790 Other: Voiding Method Toilet Toilet # Voids 2 - Exam The patient appeared well nourished and normally developed. Vital signs as documented. Head exam is unremarkable. No scleral icterus or corneal arcus noted. Neck is without jugular venous distension, thyromegaly, or carotid bruits. Carotid upstrokes are brisk bilaterally. Lungs are showing diminished breath on the lung bases bilaterally right more than left lung with some coarse crackles along the right lateral chest wall and right lower lobe. The chest along the right is swollen and there is asymmetric bulge along the rib cage and there is also tender to touch. No cellulitis.. Cardiac exam reveals the PMI to be normally sized and situated. Rhythm is regular. First and second heart sounds normal. No murmurs, rubs or gallops. Abdominal exam reveals normal bowel sounds, no masses, no organomegaly and no aortic enlargement. Extremities are nonedematous and both femoral and pedal pulses are normal. - Labs CBC & Chem 7: 12/25/16 06:37 12/25/16 06:37 Labs: Abnormal Lab Results - Last 24 Hours (Table) 12/25/16 Range/Units 06:37 RBC 4.05 L (4.30-5.90) m/uL Hgb 10.9 L (13.0-17.5) gm/dL Hct 34.3 L (39.0-53.0) % RDW 17.1 H (11.5-15.5) % Lymphocytes # (Manual) 0.88 L (1.0-4.8) k/uL Assessment and Plan Plan: Assessment 1 malignant mesothelioma with obvious signs of disease progression based on the most recent CAT scan of the chest that was done during the current admission. I compared the current CAT scan with a previous CAT scan of the chest that was done in November 2015 and there is significant disease progression with development of bulky mediastinal lymphadenopathy causing significant mass effect on the distal trachea and bilateral mainstem bronchi. There is also extensive consolidation of the right lung and the right middle lobe and there is also development of a loculated right-sided pleural effusion and small to moderate-sized left-sided pleural effusion. 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 3 small to moderate-sized left-sided pleural effusion 4 shortness of breath secondary to above 5 anemia 6 hypertension Plan Patient is stable. No worsening his shortness of breath. Discussed the findings with Dr. Banegas. Unfortunately the prognosis poor. There may be some limited benefit by draining the right-sided pleural effusion by interventional radiology. Consider experimental treatment for mesothelioma. Consider hospice.
--- NOTE | 2016-12-25 19:43 | CONS ---
CONSULTATION DATE OF CONSULTATION: December 25, 20162016. REASON FOR CONSULTATION: Mesothelioma. CHIEF COMPLAINT: Short of breath. HISTORY OF PRESENT ILLNESS: Scotty is a very pleasant 71 years old gentleman, very well known to our practice and has been under the care of Dr. Aguilar. He was diagnosed as a malignant mesothelioma in September of 2014. At that time, when he presented with exertional dyspnea he had a chest x-ray, which revealed a significant pleural effusion. He was referred to [facility] and he had a 3.5 L of fluid drained at that time, and had VATs procedure and pleural biopsy of the right side was positive for mesothelioma. The patient was started on systemic chemotherapy. I believe he received treatment with Alimta, which he tolerated fairly well and he responded to it for a good period of time. He initially received Alimta from September 2014 till March of 2015 with good tolerance and response and then he continued on it from December 2015 until August [address] scan revealed progressive disease. He was subsequently started on a single agent cisplatin on 10/10/2016. He had 3 cycles of it. Last treatment was on 11/21/16 which he tolerated poorly and he had a repeat CT scan on 11/28/2016, which revealed further progression of his disease and with the development with worsening mediastinal adenopathy, axillary nodes, axillary adenopathy and diffuse nodular pleural thickening on the right hemithorax and the mediastinum node extended to the left infrahilar region with interval reduction in the caliber of the main bronchial airway. So systemic treatment was discontinued and the patient was referred to Dr. Mo at [facility] in [place] for potential clinical trial. He has an appointment scheduled to see Dr. Mo on 01/01/2017. However, the patient presented to the emergency department over this weekend with worsening exertional dyspnea and fatigue. He overall feels tired. He has lost weight. He is short of breath with slight with exertion. No dysphagia. No nausea, vomiting, some dry cough. No fever or chills. No melena, hematochezia, hematuria or hemoptysis. PAST MEDICAL HISTORY: In addition to what is stated above in regard to his mesothelioma, he has a history of hypertension, hyperlipidemia, melanoma of his skin. He has VAT procedure in the past right collarbone surgery and left eye surgery, left ankle surgery. SOCIAL HISTORY: He used to smoke, quit in 1983. He is an occasional alcohol drinker. No illicit drug use. FAMILY HISTORY: For malignancy, he has a brother who had cancer. REVIEW OF SYSTEMS: As stated above in history of present illness. PHYSICAL EXAMINATION: He is alert, oriented times three. He does not appear to be in distress. His vital signs are temperature 97.6. Afebrile. Pulse 87, regular, respirations 16, blood pressure 145/74, pulse ox 92% on 2 L nasal cannula. HEENT: Normocephalic, atraumatic. No obvious icterus. NECK: Supple. Chest is equal expansion bilaterally. Lungs revealed decreased breath sounds bilaterally, more so on the right base all the way up and there is crackles heard in the right upper lobe. Heart is regular rate and rhythm. ABDOMEN: Soft. No tenderness. Bowel sounds present. Extremities revealed no significant edema. The lymphatic system has a bilateral axillary node felt. Musculoskeletal moving all extremities appropriately. No percussion tenderness detected over his spine or his sternum. IMPRESSION: 1. Malignant mesothelioma with recent progression on cisplatin as stated above in the history of present illness. 2. Recent CT scan revealed evidence of disease progression and also he did have a CT scan done at outside facility about 3 weeks ago, which revealed a similar finding with disease progression and there was also a small but new liver lesion as well. 3. Progressive dyspnea secondary to above. RECOMMENDATION: 1. I did discuss the clinical impression of disease progression with the patient and his . 2. After being on oxygen and receiving some bronchodilator, his shortness of breath has improved now. 3. Potential options would be to consider palliative radiation therapy if the breathing continued to deteriorate. 4. The other options would be to follow up with scheduled appointment with Dr. Mo at [facility] in [place] for consideration for clinical trials. 5. The patient and his are fully aware of the overall poor prognosis. 6. I did also discuss his care was Dr. Mandel. 7. The above was discussed in detail with the patient, his at bedside and I have answered all the questions to their satisfaction. Thank you for asking me to partake in the care of this nice gentleman. MMODL / IJN: [id number] /
--- NOTE | 2016-12-25 23:13 | PN ---
PROGRESS NOTE DATE OF SERVICE: December 25, 2016. PRESENT COMPLAINT: Short of breath. INTERVAL HISTORY: This is a patient with mesothelioma with failed outpatient treatment. Presented with more shortness of breath. The patient may have a pneumonia hence getting antibiotics. Dr. Mandel from Pulmonary saw the patient, the patient's mediastinal lymph nodes seemed to be compressing on the main bronchus. Patient has been tapped before. Eating small amounts. Up outside the bed. REVIEW OF SYSTEMS: Done for constitutional, cardiovascular, GI, pulmonary relevant findings as above. MEDICATIONS: Current medications reviewed that include IV Zosyn. EXAMINATION: Temp 97.6, pulse 89, respiratory rate 18, blood pressure 129/78, pulse ox 95% on room air. General appearance sitting up, not in distress. HEENT: EYES conjunctivae pale. Neck JVD not raised. Mass not palpable. Respiratory effort increased. Lungs decreased breath sounds on the right side. Right basal crackles. Cardiovascular 1st and 2nd sounds normal. No edema. ABDOMEN: Soft, nontender. Liver and spleen not palpable. Psychiatry: Alert and oriented times three. Mood and affect normal. INVESTIGATIONS: White count 5.5, hemoglobin 10.9, potassium 4.0. ASSESSMENT: 1. Mesothelioma due to chemotherapy clinically worsening. 2. Possible right basilar pneumonia. 3. Right-sided pleural effusion secondary to underlying mesothelioma. 4. Normocytic anemia secondary to malignancy. 5. Hypoalbuminemia likely from protein calorie malnutrition and decreased oral intake. PLAN: Continue antibiotics. Discussed with Dr. Mandel. We will await input from Dr. Banegas from Oncology. Overall prognosis is guarded. CT scan of the brain did not show any obvious metastatic disease. MMODL / IJN: [id number] /
--- NOTE | 2016-12-26 01:39 | XR ---
EXAM: XR Chest, 1 View CLINICAL HISTORY: Reason: difficulty breathing TECHNIQUE: Frontal view of the chest. COMPARISON: 12/24/2016. FINDINGS: Lungs/Pleural space: Chronic emphysematous changes are again seen with small left and moderate size right pleural effusion, likely loculated, with diffuse right mid and bilateral lower lung opacities redemonstrated, probably unchanged. No pneumothorax. Heart: Cardiac silhouette size is stable with atherosclerotic thoracic aorta. Mediastinum: Unremarkable. Bones/joints: Postsurgical changes are again seen involving the right clavicle. Tubes, lines and devices: Stable right internal jugular MediPort catheter. IMPRESSION: Chronic emphysematous changes with small left and moderate size right pleural effusion, likely loculated, with diffuse right mid and bilateral lower lung opacities redemonstrated, essentially unchanged.
[2016-12-26] MEDS: ENOXAPARIN 40 MG/0.4 ML SYRINGE SQ SCH (08:03)
[2016-12-26] MEDS: LISINOPRIL 10 MG TAB PO SCH (08:03)
[2016-12-26] MEDS: PIPERACILLIN-TAZOBACTAM 3.375 GM in DEXTROSE/WATER 1 50ML.BAG IVPB SCH ×3 (08:03→23:45)
--- NOTE | 2016-12-26 09:50 | ECHOF ---
Referral Reason:Shortness of breath, pedal edema MEASUREMENTS -------- HEIGHT: 162.6 cm WEIGHT: 63.5 kg BP: 168/86 RVIDd: 3.1 cm (< 3.3) IVSd: 1.3 cm (0.6 - 1.1) LVIDd: 4.1 cm (3.9 - 5.3) LVPWd: 1.4 cm (0.6 - 1.1) IVSs: 1.7 cm LVIDs: 2.6 cm LVPWs: 1.5 cm LA Diam: 2.9 cm (2.7 - 3.8) LAESV Index (A-L): 12.57 ml/m Ao Diam: 3.8 cm (2.0 - 3.7) AV Cusp: 2.2 cm (1.5 - 2.6) MV EXCURSION: 23.080 mm (> 18.000) MV EF SLOPE: 69 mm/s (70 - 150) EPSS: 0.4 cm MV E Umberto: 1.01 m/s MV DecT: 110 ms MV A Umberto: 0.90 m/s MV E/A Ratio: 1.13 RAP: 5.00 mmHg RVSP: 45.99 mmHg FINDINGS -------- Sinus rhythm. This was a technically good study. The left ventricular size is normal. There is moderate concentric left ventricular hypertrophy. Overall left ventricular systolic function is normal with, an EF between 55 - 60 %. The right ventricle is normal in size. Normal LA size by volume 22+/-6 ml/m2. The right atrium is normal in size. Trace to mild aortic regurgitation. The mitral valve is normal. No mitral regurgitation. Mild tricuspid regurgitation present. There is mild to moderate pulmonary hypertension. The right ventricular systolic pressure, as measured by Doppler, is 45.99mmHg. Trace/mild (physiologic) pulmonic regurgitation. The aortic root size is normal. Normal inferior vena cava with normal inspiratory collapse consistent with estimated right atrial pressure of 5 mmHg. There is a small to moderate generalized pericardial effusion present. No hemodynamic issues. CONCLUSIONS -------- 1. Sinus rhythm. 2. The mitral valve is normal. 3. No mitral regurgitation. 4. Mild tricuspid regurgitation present. 5. There is mild to moderate pulmonary hypertension. 6. The right ventricular systolic pressure, as measured by Doppler, is 45.99mmHg. 7. Trace/mild (physiologic) pulmonic regurgitation. 8. The aortic root size is normal. 9. Normal inferior vena cava with normal inspiratory collapse consistent with estimated right atrial pressure of 5 mmHg. 10. There is a small, generalized pericardial effusion present. 11. This was a technically good study. 12. The left ventricular size is normal. 13. There is moderate concentric left ventricular hypertrophy. 14. Overall left ventricular systolic function is normal with, an EF between 55 - 60 %. 15. The right ventricle is normal in size. 16. Normal LA size by volume 22+/-6 ml/m2. 17. The right atrium is normal in size. 18. Trace to mild aortic regurgitation. SIFTING OPERATOR: Elissa Dempsey RDCS
--- NOTE | 2016-12-26 12:12 | P.PN ---
Subjective A 71-year-old male patient, a primary care of Dr. 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 Aguilar for oncology. The patient has a diagnosis of mesothelioma at was established approximately 2-1/2 years back. Diagnosis established by a video-assisted thoracoscopic lung biopsy. Since then the patient has been on systemic chemotherapy. The patient was placed on Alimta on 2 separate occasions. He was found to have evidence of disease progression and following that he was switched to cisplatin which has been his latest systemic chemotherapy. The patient's condition has been gradually getting worse. His appetite has been down. His been losing weight. He has developed a painful bulge over the right lateral chest area. He also noted progressive worsening shortness of breath and for that reason he presented to the hospital. Minimal cough.No sputum production. No hemoptysis. No fever or chills. No previous history of DVT or pulmonary embolism. For this reason the patient presented to the hospital and a CT angios the chest was done that showed no evidence of any pulmonary embolism. The findings were very suspicious for disease progression and the patient had progressive worsening of the pleural mesothelioma in addition to development of an enlarged mediastinal lymphadenopathy causing mass effect on the distal trachea and the bilateral mainstem bronchi. There was also area of consolidation in the posterior right midlung and the right lower lobe and a small right-sided loculated pleural effusion. I think this is very much consistent with disease progression. Underlying pneumonia or a superimposed pneumonia is doubtful that he cannot be completely excluded. Note that the patient underwent a recent large volume thoracentesis from the right lung with a total of 750 mL of pleural fluid is aspirated from the right lung on the the care of interventional radiology.No leg swelling. No history of any DVT or pulmonary embolism. No change in mental status. CAT scan of the brain is also negative. Hemoglobin is at 10. On 12/25/2016 I'm seeing this patient in follow-up. His condition essentially unchanged. He is quite stable. Still short of breath with limited amount of activity. Discussed the case with Dr. Banegas. The patient is considering experimental treatment for his mesothelioma. We should be able to give this patient some minimal relief by draining the right-sided pleural effusion. For that reason a consultation will be placed for interventional radiology. The patient is seen again today 12/26/2016 in follow-up on the oncology unit. He is currently awake and alert in no acute distress. Is currently maintaining O2 saturations in the low 90s. He's been afebrile. Hemodynamically stable. He did have some issues with shortness of breath last night and required his oxygen to be turned up from 2 L/m per nasal cannula to 3 L. His chest x-ray was essentially unchanged. The plan is to undergo pigtail catheter placement per interventional radiology in regards to his recurrent right sided pleural effusion. Objective - Vital Signs Vital signs: Vital Signs Temp 97.5 F L 12/26/16 07:00 Pulse 92 12/26/16 07:00 Resp 20 12/26/16 07:00 BP 159/76 12/26/16 07:00 Pulse Ox 93 L 12/26/16 07:00 Intake & Output 12/25/16 12/26/16 12/26/16 18:59 06:59 18:59 Intake Total 640 Balance 640 Intake: Intake, IV Titration 50 Amount Piperacillin-Tazobactam 3 50 .375 gm In Dextrose/Water 1 50ml.bag @ 12.5 mls/hr IVPB Q8HR [facility] Rx#: [id number] Oral 590 Other: Voiding Method Toilet Toilet Toilet # Voids 3 2 - Exam The patient appeared well nourished and normally developed. Vital signs as documented. Head exam is unremarkable. No scleral icterus or corneal arcus noted. Neck is without jugular venous distension, thyromegaly, or carotid bruits. Carotid upstrokes are brisk bilaterally. Lungs are showing diminished breath on the lung bases bilaterally right more than left lung with some coarse crackles along the right lateral chest wall and right lower lobe. The chest along the right is swollen and there is asymmetric bulge along the rib cage and there is also tender to touch. No cellulitis.. Cardiac exam reveals the PMI to be normally sized and situated. Rhythm is regular. First and second heart sounds normal. No murmurs, rubs or gallops. Abdominal exam reveals normal bowel sounds, no masses, no organomegaly and no aortic enlargement. Extremities are nonedematous and both femoral and pedal pulses are normal. - Labs CBC & Chem 7: 12/25/16 06:37 12/25/16 06:37 Assessment and Plan Plan: Assessment 1 malignant mesothelioma with obvious signs of disease progression based on the most recent CAT scan of the chest that was done during the current admission. I compared the current CAT scan with a previous CAT scan of the chest that was done in November 2015 and there is significant disease progression with development of bulky mediastinal lymphadenopathy causing significant mass effect on the distal trachea and bilateral mainstem bronchi. There is also extensive consolidation of the right lung and the right middle lobe and there is also development of a loculated right-sided pleural effusion and small to moderate-sized left-sided pleural effusion. 2 located right-sided pleural effusion. 3 small to moderate-sized left-sided pleural effusion 4 shortness of breath secondary to above 5 anemia 6 hypertension Plan The patient was seen and evaluated by Dr. John. His CAT scan and chest x- rays were reviewed. We will go ahead and request a pigtail catheter insertion per interventional radiology for his recurrent right-sided pleural effusion. This may offer some relief from his shortness of breath. The patient does have an appointment at [facility] in [place] on 01/02/2017 for evaluation for possible experimental treatment for his end-stage mesothelioma. This mesothelioma has been quite progressive despite chemotherapy. Hospice/comfort care may also be a consideration. For now, the patient and his , who is at the bedside, are agreeable to the plan for the pigtail catheter insertion. We will continue to follow.
--- NOTE | 2016-12-26 12:34 | P.PN ---
Subjective This is a pleasant 71-year-old gentlemen who follows with Dr. Floyd in the office. He is being seen today as a follow-up from initial consultation yesterday. He is currently being treated for malignant mesothelioma and presented to the hospital with complaints of worsening shortness of breath. He is no longer undergoing chemotherapy at this time due to lack of response. He is currently considering a trial treatment at [facility] in [place]. An echocardiogram was performed and shows mild to moderate pulmonary hypertension with RVSP 45.99 mmHg with normal atrium and ventricle size, mild concentric left ventricular hypertrophy, preserved left ventricular function with ejection fraction of 55-60% and a small, generalized pericardial effusion. This pericardial effusion is not hemodynamically significant. Lengthy discussion was had with the pt's and it is their wishes that the pt undergo primarily comfort care at this time. Objective - Vital Signs Vital signs: Vital Signs Temp 97.5 F L 12/26/16 07:00 Pulse 92 12/26/16 07:00 Resp 20 12/26/16 07:00 BP 159/76 12/26/16 07:00 Pulse Ox 93 L 12/26/16 07:00 Intake & Output 12/25/16 12/26/16 12/26/16 18:59 06:59 18:59 Intake Total 640 Balance 640 Intake: Intake, IV Titration 50 Amount Piperacillin-Tazobactam 3 50 .375 gm In Dextrose/Water 1 50ml.bag @ 12.5 mls/hr IVPB Q8HR [facility] Rx#: [id number] Oral 590 Other: Voiding Method Toilet Toilet Toilet # Voids 3 2 - Exam GENERAL: Well-appearing, well-nourished and in no acute distress. NECK: Supple without JVD or thyromegaly. LUNGS: Breath sounds diminished b/l with mild rales appreciated b/l base. No wheezes he is or rhonchi appreciated. HEART: Regular rate and rhythm without murmurs, rubs or gallops. S1 and S2 heard. EXTREMITIES: Normal range of motion with 2+ pitting edema. No clubbing or cyanosis. Peripheral pulses intact and strong. - Labs CBC & Chem 7: 12/25/16 06:37 12/25/16 06:37 Assessment and Plan Plan: ASSESSMENT 1. Malignant mesothelioma 2. Bilateral pleural effusions, right greater than left 3. Shortness of breath secondary to progression of mesothelioma and bilateral pleural effusions 4. Anemia 5. Hypertension 6. Lower extremity edema PLAN Continue with current medical treatment. Lengthy discussion was had with the . It is their wishes at this time that no extraneous measures are taken. They only wish for comfort at this point. The pericardial effusion is not hemodynamically significant and will require only monitoring. Please feel free to contact us if you should need anything further. Nurse Practitioner note has been reviewed, I agree with a documented findings and plan of care. Patient was seen and examined.
--- NOTE | 2016-12-26 15:30 | P.PN ---
<Jaspreet Esparzaat - Last Filed: 12/26/16 17:38> Progress Note - Text Attending note. Date of service-12/26/2016 This patient was seen and examined by me . Discussed the patient with my nurse practitioner Ms. Montenegro. tired. Up to the bathroom. Shortness of breath still present. On examination: Lungs-decreased breath sounds, especially the right base Investigations: 2-D echo shows preserved LV function Assessment and plan: Advancing mesothelioma. Having failed outpatient treatment. Discussed with Dr. Murry. Hospice may be an option at this point. He with Dr. Dr. Aguilar patient's oncologist. We will see if the compression of the main bronchi if radiation will help. Tapping of the pleural fluid will be palliative. Talked with the patient and . Total time spent today was about 40 minutes including 20-25 was a discussion <LanJuanita Letitia - Last Filed: 12/26/16 17:57> Progress Note - Text DATE OF SERVICE: 12/26/2016 PRESENTING COMPLAINT: Shortness of breath HISTORY OF PRESENT ILLNESS: 71-year-old patient with history of mesothelioma and failed outpatient treatment for pneumonia. Presented to the emergency department with increasing shortness of breath and was admitted for the same. INTERVAL HISTORY: 12/26/2016: Patient sitting up at the side of the bed, no distress ambulatory in the room in the hallway, oxygen had to be turned up an additional liter as he felt short of breath, is maintaining normally on 2 L nasal cannula currently on 3 L. Appetite is low only eating about 20% of his meals, ambulatory in the room and hallway, last BM 12/26/2016. REVIEW OF SYSTEMS: Done for constitutional ,cardiovascular, GI, pulmonary with relevant findings as above. CURRENT MEDICATIONS Lovenox, Zestril, Zosyn, Restoril. PHYSICAL EXAM VITAL SIGNS: Temperature 97.5, pulse 92, respiratory rate 20, blood pressure 159/76, oxygen saturation 93% on 3 L. GENERAL APPEARANCE: Sitting up on the bed, somewhat anxious appearing. EYES: Pupils equal. Conjunctiva normal. NECK: JVD not raised. Mass not palpable. RESPIRATORY: Respiratory effort normal. Lungs diminished bases bilaterally with right being greater than left coarse crackles to the right on auscultation. CARDIOVASCULAR: First and second sounds normal. Mild edema. ABDOMEN: Soft. Liver and spleen not palpable. No tenderness. No mass palpable. PSYCHIATRY: Alert and oriented x3. Mood and affect somewhat anxious appearing. INVESTIGATIONS: Hemoglobin 10.9, BMP unremarkable Echocardiogram: Sinus rhythm, no mitral regurgitation and mild tricuspid regurgitation, mild to moderate pulmonary hypertension, EF between 55 and 60%. ASSESSMENT: -Mesothelioma due to chemotherapy clinically worsening -Possible right basilar pneumonia -Right-sided pleural effusion secondary to underlying mesothelioma. -Normocytic anemia secondary to malignancy. -Hypoalbuminemia likely from protein calorie malnutrition and decreased oral intake PLAN: Placement of a pigtail catheter in interventional radiology today or tomorrow for the recurrent right-sided pleural effusion per pulmonology in the hopes that this will relieve some of his shortness of breath. Has a future appointment at [facility] for experimental treatment. Hospice/comfort care will be considered based on available treatment modalities and patient condition. We will adjust his antibiotics from Zosyn to ampicillin oral. Plan of care discussed at length with the patient and at the bedside they are in agreement. We will follow closely SCOWMAN statement: Patient was seen and examined by nurse practitioner Juanita Montenegro and all elements of the case discussed with attending Dr. Esparza
--- NOTE | 2016-12-26 18:19 | P.PN ---
Subjective Principal diagnosis: MACHO, orthopnea Pt seen today in follow up. He feels he is breathing a little better then on admit but, his O2 was turned up to 3L NC last night as he had an episode of othopnea with low O2 sat. He continues to have a cough, not as productive, no fevers, denies any changes in bowel or bladder habits. Objective - Vital Signs Vital signs: Vital Signs Temp 97.7 F 12/26/16 15:00 Pulse 95 12/26/16 15:00 Resp 20 12/26/16 15:00 BP 144/69 12/26/16 15:00 Pulse Ox 92 L 12/26/16 15:00 Intake & Output 12/25/16 12/26/16 12/26/16 18:59 06:59 18:59 Intake Total 640 Balance 640 Intake: Intake, IV Titration 50 Amount Piperacillin-Tazobactam 3 50 .375 gm In Dextrose/Water 1 50ml.bag @ 12.5 mls/hr IVPB Q8HR [facility] Rx#: [id number] Oral 590 Other: Voiding Method Toilet Toilet Toilet # Voids 3 2 2 - Constitutional General appearance: Present: average body habitus, cooperative, no acute distress - EENT EENT Comment(s): left pupil is chronically dilated ENT: Present: normal oropharynx - Respiratory Respiratory: bilateral: wheezing (anterior) - Cardiovascular Heart sounds: normal: S1, S2 - Peripheral edema leg Peripheral Edema: bilateral: None - Gastrointestinal General gastrointestinal: Present: normal bowel sounds, soft - Integumentary Integumentary: Present: normal - Neurologic Neurologic: Present: CNII-XII intact - Musculoskeletal Musculoskeletal: Present: strength equal bilaterally - Psychiatric Psychiatric: Present: A&O x's 3, appropriate affect, intact judgment & insight - Labs CBC & Chem 7: 12/25/16 06:37 12/25/16 06:37 Assessment and Plan (1) Dyspnea Narrative/Plan: Slightly improved since admission. Pt is on abx and O2. Pt is being followed by Pulmonary. Cardiology consulted, ECHO done this AM. Await report and recommendations. Explained to pt that evaluation for home O2 is done just prior to discharge. Status: Acute (2) Visual disturbance Narrative/Plan: Brain CT reports reviewed and are negative for metastatic disease. Likely hallucinations were related to hypoxia as pt is no longer c/o visual disturbances. Status: Acute (3) Mesothelioma Narrative/Plan: Pt was seen by Dr. Aguilar within the last few weeks. Unfortunately he had disease progression while on treatment. Pt is due to be seen at [facility] on the to be evaluated for clinical trials. We will continue to f/u with pt daily. If his breathing status improves with abx and O2 then he will go to [facility] for clinical trial evaluation. If respiratory status does not improve pt may need Rad Onc evaluation to see if palliative radiation would be reasonable to improve respiratory symptoms. All pt and 's questions answered to the best of my ability Status: Chronic
[2016-12-27] MEDS: PIPERACILLIN-TAZOBACTAM 3.375 GM in DEXTROSE/WATER 1 50ML.BAG IVPB SCH (08:30)
[2016-12-27] MEDS: LISINOPRIL 10 MG TAB PO SCH (08:31)
--- NOTE | 2016-12-27 10:06 | P.PN ---
Subjective A 71-year-old male patient, a primary care of Dr. Theron Zaragoza was also has Dr. Goss as his socket puller and Dr. Aguilar for oncology. The patient has a diagnosis of mesothelioma at was established approximately 2-1/2 years back. Diagnosis established by a video-assisted thoracoscopic lung biopsy. Since then the patient has been on systemic chemotherapy. The patient was placed on Alimta on 2 separate occasions. He was found to have evidence of disease progression and following that he was switched to cisplatin which has been his latest systemic chemotherapy. The patient's condition has been gradually getting worse. His appetite has been down. His been losing weight. He has developed a painful bulge over the right lateral chest area. He also noted progressive worsening shortness of breath and for that reason he presented to the hospital. Minimal cough.No sputum production. No hemoptysis. No fever or chills. No previous history of DVT or pulmonary embolism. For this reason the patient presented to the hospital and a CT angios the chest was done that showed no evidence of any pulmonary embolism. The findings were very suspicious for disease progression and the patient had progressive worsening of the pleural mesothelioma in addition to development of an enlarged mediastinal lymphadenopathy causing mass effect on the distal trachea and the bilateral mainstem bronchi. There was also area of consolidation in the posterior right midlung and the right lower lobe and a small right-sided loculated pleural effusion. I think this is very much consistent with disease progression. Underlying pneumonia or a superimposed pneumonia is doubtful that he cannot be completely excluded. Note that the patient underwent a recent large volume thoracentesis from the right lung with a total of 750 mL of pleural fluid is aspirated from the right lung on the the care of interventional radiology.No leg swelling. No history of any DVT or pulmonary embolism. No change in mental status. CAT scan of the brain is also negative. Hemoglobin is at 10. On 12/25/2016 I'm seeing this patient in follow-up. His condition essentially unchanged. He is quite stable. Still short of breath with limited amount of activity. Discussed the case with Dr. Banegas. The patient is considering experimental treatment for his mesothelioma. We should be able to give this patient some minimal relief by draining the right-sided pleural effusion. For that reason a consultation will be placed for interventional radiology. The patient is seen again today 12/26/2016 in follow-up on the oncology unit. He is currently awake and alert in no acute distress. Is currently maintaining O2 saturations in the low 90s. He's been afebrile. Hemodynamically stable. He did have some issues with shortness of breath last night and required his oxygen to be turned up from 2 L/m per nasal cannula to 3 L. His chest x-ray was essentially unchanged. The plan is to undergo pigtail catheter placement per interventional radiology in regards to his recurrent right sided pleural effusion. The patient is seen again today 12/27/2016 in follow-up on the oncology unit. He is awake and alert in no acute distress. He has feeling a little stronger today as compared to yesterday. He denies any worsening shortness of breath today. He is maintaining O2 saturations in the low 90s on 2 L/m per nasal cannula. His been afebrile. Hemodynamically stable. The plan is for pigtail catheter insertion to the right recurrent pleural effusion. He could possibly be discharged home later this afternoon. Objective - Vital Signs Vital signs: Vital Signs Temp 97.5 F L 12/27/16 07:00 Pulse 95 12/27/16 07:00 Resp 16 12/26/16 23:00 BP 148/75 12/27/16 07:00 Pulse Ox 91 L 12/27/16 07:00 Intake & Output 12/26/16 12/27/16 12/27/16 18:59 06:59 18:59 Intake Total 150 Balance 150 Intake: IV 50 Piperacillin-Tazobactam 3 50 .375 gm In Dextrose/Water 1 50ml.bag @ 12.5 mls/hr IVPB Q8HR [facility] Rx#: [id number] Oral 100 Other: Voiding Method Toilet Toilet Toilet # Voids 2 1 - Exam The patient appeared well nourished and normally developed. Vital signs as documented. Head exam is unremarkable. No scleral icterus or corneal arcus noted. Neck is without jugular venous distension, thyromegaly, or carotid bruits. Carotid upstrokes are brisk bilaterally. Lungs are showing diminished breath on the lung bases bilaterally right more than left lung with some coarse crackles along the right lateral chest wall and right lower lobe. The chest along the right is swollen and there is asymmetric bulge along the rib cage and there is also tender to touch. No cellulitis. Cardiac exam reveals the PMI to be normally sized and situated. Rhythm is regular. First and second heart sounds normal. No murmurs, rubs or gallops. Abdominal exam reveals normal bowel sounds, no masses, no organomegaly and no aortic enlargement. Extremities are nonedematous and both femoral and pedal pulses are normal. - Labs CBC & Chem 7: 12/25/16 06:37 12/25/16 06:37 Assessment and Plan Plan: Assessment 1 malignant mesothelioma with obvious signs of disease progression based on the most recent CAT scan of the chest that was done during the current admission. We compared the current CAT scan with a previous CAT scan of the chest that was done in November 2015 and there is significant disease progression with development of bulky mediastinal lymphadenopathy causing significant mass effect on the distal trachea and bilateral mainstem bronchi. There is also extensive consolidation of the right lung and the right middle lobe and there is also development of a loculated right-sided pleural effusion and small to moderate-sized left-sided pleural effusion. 2 loculated right-sided pleural effusion. The plan is for pigtail catheter insertion today. 3 small to moderate-sized left-sided pleural effusion 4 shortness of breath secondary to above 5 anemia 6 hypertension Plan The patient was seen and evaluated by Dr. John. The plan is for a pigtail catheter insertion per interventional radiology today for his recurrent right- sided pleural effusion. This may offer some relief from his shortness of breath. The patient does have an appointment at [facility] next week for evaluation for possible experimental treatment for his end-stage mesothelioma. This malignant mesothelioma has been quite progressive despite chemotherapy. Hospice/comfort care may also be a consideration. For now, the patient and his , who is at the bedside, are agreeable to the plan for the pigtail catheter insertion. The patient is hoping to go home later today. He will be evaluated for possible need for home oxygen.
[2016-12-27 11:01] VITALS: RESP 18
[2016-12-27] MEDS ORDERED: AMOXIC-POT CLAV 875-125MG 1 EACH TAB PO SCH (11:30)
[2016-12-27 12:23] VITALS: BP 145/81; TEMP 97.6
--- NOTE | 2016-12-27 15:18 | CT ---
EXAMINATION TYPE: CT chest tube insertion DATE OF EXAM: 12/27/2016 COMPARISON: NONE HISTORY: Chest tube insertion requested for large pleural effusion CT DLP: 698 mGycm The procedure is discussed with the patient, the risks, complications, benefits and alternatives, wer e discussed and any questions were answered. Informed consent was obtained. The patient is placed p michael on the CT table, prepped and draped in the usual sterile fashion. Utilizing a 22-gauge Chiba needle access into the right pleural space was achieved and there is place ment of an O.035 guidewire. Serial dilation 8 Swazi and placement of an 8 Swazi drainage catheter. All elements of maximal barrier and sterile technique were utilized. The patient remained stable thr oughout the procedure with no immediate postprocedural complication. IMPRESSION: 1. Successful CT guided right-sided chest tube insertion for pleural effusion
[2016-12-27 15:45] VITALS: PULSE 90
--- NOTE | 2016-12-27 17:20 | P.DS ---
<Noman Esparza - Last Filed: 12/28/16 13:13> Providers Date of admission: 12/27/16 09:55 Attending physician: Noman Esparza Consults: 12/24/16 12:34 Consult Physician Urgent Consulting Provider: Mehran Aguilar Consult Reason/Comments: History of mesothelioma Do you want consulting provider notified?: Yes Consult Physician Urgent Consulting Provider: Jim Mandel Consult Reason/Comments: Dyspnea, history of mesothelioma Do you want consulting provider notified?: Yes Consult Physician Urgent Consulting Provider: [facility] Consult Reason/Comments: Dyspnea Do you want consulting provider notified?: Yes Primary care physician: Theron Alicia [facility] Course: Attending note. Date of service-12/27/2016 This patient was seen and examined by me . Discussed the patient with my nurse practitioner Ms. Montenegro. Patient doing better. has a pigtail catheter in place. Up and about. We'll follow-up at [facility]. On examination: Lungs-decreased breath sounds Investigations: Assessment and plan: DC home on home oxygen. Acute hypoxic respiratory failure secondary to pleural effusion and mesothelioma , present on admission. Follow-up care discussed with patient and . Questions answered. Plan - Discharge Summary New Discharge Prescriptions: New Amoxic-Pot Clav 875-125Mg [Augmentin 875-125] 1 each PO Q12HR #6 tab Continue Lisinopril [Zestril] 10 mg PO QAM Acetaminophen [Tylenol Extra Strength] 1,000 mg PO Q6H PRN PRN Reason: Pain Omeprazole 20 mg PO DAILY No Action amLODIPine BESYLATE [Norvasc] 5 mg PO QAM Discharge Medication List Lisinopril [Zestril] 10 mg PO QAM 08/17/14 [History] amLODIPine BESYLATE [Norvasc] 5 mg PO QAM 08/17/14 [History] Acetaminophen [Tylenol Extra Strength] 1,000 mg PO Q6H PRN 10/09/16 [History] Omeprazole 20 mg PO DAILY 12/24/16 [History] Amoxic-Pot Clav 875-125Mg [Augmentin 875-125] 1 each PO Q12HR #6 tab 12/27/16 [ Rx] Follow up Appointment(s)/Referral(s): dr hill [Other] - 1 Week Mary John MD [STAFF PHYSICIAN] - 1 Week [facility], [NON-STAFF] - As Needed Theron Zaragoza MD [Primary Care Provider] - 1-2 days (call office for follow up appointment) Mehran Aguilar MD [STAFF PHYSICIAN] - 1 Week (call office for follow up appointment) Patient Instructions/Handouts: Amoxicillin/Clavulanate Potassium (By mouth), Chest Tubes (DC), Dyspnea (GEN), How to Care for Your Chest or Abdominal Catheter (DC) Activity/Diet/Wound Care/Special Instructions: Oxygen ordered through [facility]: #[phone] dc home with pigtail instrictions and follow up with pulmonary Diet as tolerated Activity as tolerated Discharge Disposition: HOME SELF-CARE <Juanita Montenegro - Last Filed: 12/28/16 17:13> Providers Expected date of discharge: 12/27/16 Hospital Course: FINAL DIAGNOSES: -Advancing Mesothelioma due to chemotherapy, clinically worsening -Acute hypoxic respiratory failure secondary to mesothelioma and pleural effusion, present on admission -Possible right basilar pneumonia failed outpatient treatment, slow to respond -Right-sided pleural effusion secondary to underlying mesothelioma. -Normocytic anemia secondary to malignancy. -Mild protein calorie malnutrition likely from hypoalbuminemia and decreased oral intake HOSPTIAL COURSE: 71-year-old patient with history of mesothelioma presented with increasing shortness of breath slight cough no sputum no fever. Evaluated for PE which was ruled out and patient was admitted for possible pneumonia. Placed on antibiotics and Consultations placed to pulmonology, cardiology, oncology. Imaging revealed significant progression of the patient's mesothelioma due to bulky mediastinal lymphadenopathy causing significant mass effect the distal trachea also there is a significant right lung and right middle lobe consolidation and it was felt that a pigtail catheter placement by IR would be helpful. Etiology performed an echocardiogram and found the patient had generalized small pericardial effusion and believes that this is not hemodynamically significant no intervention will be done per family request. Oncology confirms disease progression even though patient has been on treatment. Patient due to be evaluated January 01 at [facility] for clinical trial. If patient's breathing status improves with antibiotics and oxygen he will be then allowed to go to [facility] for the clinical trial evaluation however if failure to improve he may have to have radiation oncology evaluation for palliative radiation treatment. Pigtail catheter placed this morning and attached to a Pleur-evac in interventional radiology. Patient's breathing improved, continues to wear oxygen and will go home with home oxygen, ambulatory in the room and rodrigez ways, tolerates his diet, last BM 12/26/2016. Patient came to go home and condition is stabilized such that discharge is appropriate. PHYSICAL EXAM: CARDIOVASCULAR: First second sounds noted, mild generalized edema RESPIRATORY: Effort increased, decreased breath sounds with slight basilar crackles right greater than left right chest wall pigtail catheter attached to a Pleur-evac PSYCHIATRY: Alert and oriented 3, mood and affect anxious appearing. Patient was seen and examined by nurse practitioner Juanita Montenegro in all elements of the case discussed with attending Dr. Esparza DISPOSITION: Discharge home to the care of his and family
--- NOTE | 2016-12-27 18:53 | P.PN ---
Subjective Principal diagnosis: MACHO, orthopnea Pt seen today in follow up. He breathing is improved, he is on 2L O2 now, he is having pigtail inserted today to control malignant pleural effusion. He is ambulating with O2. Objective - Vital Signs Vital signs: Vital Signs Temp 97.6 F 12/27/16 15:00 Pulse 90 12/27/16 15:00 Resp 18 12/27/16 10:10 BP 145/81 12/27/16 15:00 Pulse Ox 95 12/27/16 15:00 Intake & Output 12/26/16 12/27/16 12/27/16 18:59 06:59 18:59 Intake Total 150 Balance 150 Intake: IV 50 Piperacillin-Tazobactam 3 50 .375 gm In Dextrose/Water 1 50ml.bag @ 12.5 mls/hr IVPB Q8HR [facility] Rx#: [id number] Oral 100 Other: Voiding Method Toilet Toilet Toilet # Voids 2 1 2 - Constitutional General appearance: Present: average body habitus, cooperative, no acute distress - EENT Eyes: Present: abnormal pupil, anicteric sclerae - Integumentary Integumentary: Present: normal - Musculoskeletal Musculoskeletal: Present: strength equal bilaterally - Psychiatric Psychiatric: Present: A&O x's 3, appropriate affect, intact judgment & insight - Labs CBC & Chem 7: 12/25/16 06:37 12/25/16 06:37 Assessment and Plan (1) Dyspnea Narrative/Plan: Improved since admission with O2 and antibiotic treatments, ECHO showed small pericardial effusion-not enough to suspect being cause of MACHO. Pt will be evaluated for home O2 prior to discharge. Status: Acute (2) Visual disturbance Narrative/Plan: Likely related to hypoxia, pt has not had any visual disturbances for 2 days. Status: Acute (3) Mesothelioma Narrative/Plan: Pt has malignant recurrent pleural effusion, plan is for pigtail drain to be inserted to improve respiratory comfort. Pt is going to be evaluated at [facility] next week to see if he is a candidate for clinical trial. Status: Chronic Plan: Pt is ok from Hem/Onc standpoint to be discharged to home once he has been cleared by Pulmonary and Attending
== END 2016-12-27 16:55 | disposition home health service (06) | DRG 180 ==
LOC: EC 08:58 → 5ONC 12:34 → OBSVTOIN 12-27 09:55
PROVIDERS: ADMIT Hospitalist; ATTEND Hospitalist
PROC: 0W9930Z Drainage of Right Pleural Cavity with Drainage Device, Percutaneous Approach (ICD-10-PCS; principal; 2016-12-27)
DX: C45.0 Mesothelioma of pleura (principal); J96.01 Acute respiratory failure with hypoxia; J18.9 Pneumonia, unspecified organism; J91.0 Malignant pleural effusion; I27.2 Other secondary pulmonary hypertension; I31.3 Pericardial effusion (noninflammatory); Z99.81 Dependence on supplemental oxygen; E44.1 Mild protein-calorie malnutrition; R44.2 Other hallucinations; I36.1 Nonrheumatic tricuspid (valve) insufficiency; D63.0 Anemia in neoplastic disease; R93.2 Abnormal findings on diagnostic imaging of liver and biliary tract; R53.1 Weakness; H57.04 Mydriasis; H53.9 Unspecified visual disturbance; E78.5 Hyperlipidemia, unspecified; R59.0 Localized enlarged lymph nodes; I10 Essential (primary) hypertension; Z87.891 Personal history of nicotine dependence; Z79.899 Other long term (current) drug therapy; Z80.8 Family history of malignant neoplasm of other organs or systems; Z85.820 Personal history of malignant melanoma of skin; Z68.24 Body mass index [BMI] 24.0-24.9, adult; Z92.21 Personal history of antineoplastic chemotherapy; Z87.81 Personal history of (healed) traumatic fracture; Z87.01 Personal history of pneumonia (recurrent); Z95.828 Presence of other vascular implants and grafts
CPT/HCPCS: 32551; 36415; 70450; 70460; 71010; 71020; 71275; 80048; 80053; 82550; 82553; 83735; 83880; 84484; 85025; 85379; 85610; 85730; 93005; 93306; 99285